=== PATIENT | female | born 1990 | race Caucasian/White ===

== ENCOUNTER 2019-12-19 11:38 | Emergency (ER) | payer OTHER, SELFPAY ==
[~2019-12-19] VITALS: Ht 154.9 cm; Wt 81.6 kg
[2019-12-19 11:44] VITALS: BP 129/86
--- NOTE | 2019-12-19 11:46 | NUR ---
Pt placed in tent for covid precautions
--- NOTE | 2019-12-19 11:49 | NUR ---
29 y/o female from home c/o cough, chest discomfort, chills, and sore throat x 4 days. RR even and unlabored. Does not appear to be in distress. C/O dry, non productive cough. Unknown covid contact. 8/10 aching pain at this time. Has not taken any medication for pain. medhx: denies
--- NOTE | 2019-12-19 12:45 | NUR ---
COVID SWAB DONE.
--- NOTE | 2019-12-19 12:47 | NUR ---
Patient discharged with v/s stable. Written and verbal after care instructions given and explained. Patient verbalized understanding. Ambulatory with steady gait. All questions addressed prior to discharge. Advised to follow up with PMD.
[2019-12-19 12:48] VITALS: BP 129/86
--- NOTE | 2019-12-20 12:03 | NUR ---
Received covid results from lab-- "not detected". Copy to go to [facility] in infection control
== END 2019-12-19 12:47 | disposition home or self-care (01) ==
LOC: MED 11:38
DX: R05 Cough (principal); J02.9 Acute pharyngitis, unspecified; R07.89 Other chest pain; R68.83 Chills (without fever)
CPT/HCPCS: 99283; U0003

== ENCOUNTER 2020-03-29 13:50 | Emergency (ER) | payer OTHER, SELFPAY ==
[~2020-03-29] VITALS: Ht 154.9 cm; Wt 76.2 kg
[2020-03-29 14:03] VITALS: BP 130/82
--- NOTE | 2020-03-29 14:04 | NUR ---
29/F c/o sore throat, mild cough, chest tightness/SOB, decrease in smell, diarrhea x 2 days. Had close contact with COVID+ person 4 days ago. Denies fever, n/v. Speaking in full clear sentences. VSS. Hx- denies
--- NOTE | 2020-03-29 14:15 | NUR ---
Dr. Nath evaluating pt in tent.
--- NOTE | 2020-03-29 14:24 | NUR ---
Swabbed pt for COVID PCR, sample dropped off at lab along with paperwork
[2020-03-29 14:33] VITALS: BP 130/82
== END 2020-03-29 14:30 | disposition home or self-care (01) ==
LOC: MED 13:50
DX: R06.02 Shortness of breath (principal); Z88.0 Allergy status to penicillin; Z91.040 Latex allergy status; Z90.721 Acquired absence of ovaries, unilateral; Z20.828 Contact with and (suspected) exposure to other viral communicable diseases
CPT/HCPCS: 99283; U0003